=== PATIENT | male | born 1980 | race African-American/Black ===

== ENCOUNTER 2020-04-04 09:43 | Emergency (ER) | payer OTHER ==
[2020-04-04] MEDS ORDERED: EPINEPHRINE/PF 1 MG/ML AMP ONE (10:00)
--- NOTE | 2020-04-04 10:34 | ER ---
Nurse's Notes [facility] Name: Richard Mensah Age: 39 yrs Sex: Male : 1980 Arrival Date: 04/04/2020 Time: 09:47 Bed 3 Private MD: Diagnosis: Obesity, unspecified;Edema, unspecified-LEFT LEG;Acute embolism and thrombosis of unspecified deep veins of left lower extremity;Pulmonary embolism;Respiratory failure, unspecified with hypoxia;Cardiac arrest Presentation: 04/04 09:38 Chief complaint: EMS states: EMS toned out for SOB, on scene pt diaphoretic, hb hyperventilating, on Xarelto for DVT, has not had medication in 4 days, pt stated "I can't breathe" then collapsed to ground. 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 09:38 Coronavirus screen: At this time, the client does not indicate any symptoms associated hb with coronavirus-19. Ebola Screen: No symptoms or risks identified at this time. Initial Sepsis Screen: Does the patient meet any 2 criteria? No. Patient's initial sepsis screen is negative. Does the patient have a suspected source of infection? No. Patient's initial sepsis screen is negative. Risk Assessment: Do you want to hurt yourself or someone else? Unable to obtain. Onset of symptoms was April 04, 2020. 09:38 Method Of Arrival: EMS: [facility] 09:38 Acuity: OSCAR 1 hb 09:38 Care prior to arrival: Oral intubation, CPR manually via thumper performed by EMS and sv is still in progress Medication(s) given: Epinephrine x4, Bicarbonate x 1. Compressions began prior to arrival. Triage Assessment: 09:42 General: Appears obese, Behavior is unresponsive. Pain: Unable to use pain scale. hb Patient is unresponsive. Historical: - Allergies: 10:14 Unable to obtain; hb - Home Meds: 10:14 Xarelto oral oral [Active]; hb - PMHx: 10:14 DVT; hb - PSHx: 10:14 Unable to obtain; hb - Immunization history:: unable to obtain. - Social history:: Smoking status: unknown. Screenin:45 Fall Risk None identified. hb 10:14 Abuse screen: unable to obtain. Nutritional screening: No deficits noted. Tuberculosis hb screening: unable to obtain. Assessment: 09:38 CPR assessment: unresponsive, no respiratory effort, intubated, Ambu ventilation. sv Cardiac rhythm is PEA. General: Appears unresponsive. Behavior is unresponsive. Neuro: Level of Consciousness is unresponsive, Oriented to none. Cardiovascular: Edema is 2+ to left midcalf, left ankle and left foot. Respiratory: Respiratory effort is none Respiratory pattern is none. GI: Abdomen is obese. Derm: Skin is intact. 09:42 Reassessment: CPR paused, PEA, manual CPR resumed. sv 09:44 Reassessment: CPR paused, PEA, manual CPR resumed. sv 09:46 Reassessment: CPR paused, PEA, manual CPR resumed. sv 09:49 Reassessment: CPR paused, PEA, manual CPR resumed. sv 09:50 Reassessment: CPR paused, PEA, manual CPR resumed. sv 09:53 Reassessment: CPR paused, PEA, manual CPR resumed. sv 09:55 Reassessment: CPR paused, PEA, manual CPR resumed. sv 09:57 Reassessment: CPR paused, PEA, manual CPR resumed. sv 09:59 Reassessment: CPR paused, PEA, manual CPR resumed. sv 10:20 Reassessment: [employer] at bedside. sv 10:40 Reassessment: LJ garment looper at the bedside. sv 12:40 Reassessment: Pt to [facility]. sv Vital Signs: 09:38 Pulse Ox 42% on 100% BVM; hb 10:01 Temp 98.5(R); sv ED Course: 09:38 Maintain EMS IV. Dressing intact. Site clean \\T\\ dry. Gauge \\T\\ site: IO left leg, IO to sv right leg not good per EMS.. 09:47 Patient arrived in ED. ss 09:48 Assisted provider with central line placement. Set up central line tray. Triple lumen sv line placed in right femoral. Line placed by Isma Easley MD Placement verified by blood return, Dressed with Tegaderm, Before procedure, did Practitioner(s) obtain informed consent? No. Patient \\T\\ family education about procedure, CLABSI prevention and S/S of infection? No. Time-out/Briefing performed prior to start of procedure? No. Was handwashing/sanitizing done immediately prior to procedure? Yes. Was patient positioned to in a way to prevent air embolism? Yes. Was procedure site sterilized? Yes, with chlorhexidine. Was the site allowed to dry? Yes. Was local anesthetic and/or sedation utilized? Yes. During the procedure, did the Practitioner(s) maintain a sterile field? Yes. Were unused ports clamped during insertion? Yes. Was a 2nd qualified MD obtained after 3 unsuccessful insertion attempts? Yes. Was blood aspirated from each lumen? Yes. After the procedure, did the Practitioner(s) clean the site and apply a sterile dressing? Yes. 09:55 Patient has correct armband on for positive identification. hb 09:58 Arm band placed on. hb 10:02 Isma Easley MD is Attending Physician. hosea 10:04 called [place] [employer] to page out the Cloud Infrastructure Architect cotton broker. eb 10:13 Susan Coleman, DELMA is Primary Nurse. sv 10:18 Triage completed. hb 10:30 Isma Easley MD is Pronouncing Provider. hosea 10:42 intact. sv 11:18 called the [facility] in [place]/ They will send someone out to come picker packer eb the patient. 11:23 a wallet, a cell phone and one shoe was taken from the patient room by security and eb given to the Terri at her request. Administered Medications: 09:41 Drug: Sodium Bicarbonate 1 amp Route: IVP; Site: Other; sv 10:57 Follow up: Response: No adverse reaction sv 09:41 Drug: EPINEPHrine (PF) 1mg/mL 1:1,000 1 mg Route: IV; Rate: calculated rate; Site: sv Other; 09:41 Follow up: Response: No adverse reaction; IV Status: Completed infusion sv 09:41 Drug: Calcium Chloride 1 grams Route: IVP; Site: Other; sv 10:56 Follow up: Response: No adverse reaction sv 09:44 Drug: EPINEPHrine 0.1mg/mL 1:10,000 1 mg Route: IVP; Site: Other; sv 10:58 Follow up: Response: No adverse reaction sv 09:46 Drug: EPINEPHrine 0.1mg/mL 1:10,000 1 mg Route: IVP; Site: Other; sv 10:58 Follow up: Response: No adverse reaction sv 09:48 Drug: Sodium Bicarbonate 1 amp Route: IVP; Site: right femoral; sv 10:57 Follow up: Response: No adverse reaction sv 09:49 Drug: EPINEPHrine 0.1mg/mL 1:10,000 1 mg Route: IVP; Site: right femoral; sv 10:58 Follow up: Response: No adverse reaction sv 09:49 Drug: Calcium Chloride 1 grams Route: IVP; Site: right femoral; sv 10:56 Follow up: Response: No adverse reaction sv 09:49 Drug: NS 0.9% 1000 ml Route: IV; Rate: 1000 ml; Site: right femoral; sv 10:00 Follow up: IV Status: Order to discontinue infusion; IV Intake: 100ml sv 09:50 Drug: EPINEPHrine (PF) 1mg/mL 1:1,000 1 mg Route: IV; Rate: calculated rate; Site: sv right femoral; 09:50 Follow up: Response: No adverse reaction; IV Status: Completed infusion sv 09:52 Drug: EPINEPHrine 0.1mg/mL 1:10,000 1 mg Route: IVP; Site: right femoral; sv 10:58 Follow up: Response: No adverse reaction sv 09:56 Drug: EPINEPHrine 0.1mg/mL 1:10,000 1 mg Route: IVP; Site: right femoral; sv 10:58 Follow up: Response: No adverse reaction sv Intake: 10:00 IV: 100ml; Total: 100ml. sv Outcome: 10:00 Outcome Patient sv 10:00 Patient : Time of 10:00 Pronounced by Isma Easley MD Body to home. 10:00 Condition: 12:41 Patient left the ED. sv Signatures: Susan Coleman RN RN Isma Easley MD MD cha Smirch, Shelby, RN RN Debora De Luna RN RN Hilda Harrington Corrections: (The following items were deleted from the chart) 10:19 10:19 General: Appears obese, Behavior is unresponsive. hb hb 10:19 10:19 Pain: Unable to use pain scale. Patient is unresponsive. hb hb 10:57 10:56 Response: No adverse reaction; IV Status: Completed infusion sv sv 10:57 10:57 Response: No adverse reaction; IV Status: Completed infusion sv sv 16:19 10:00 Patient : Time of 10:00 Pronounced by Isma Easley MD sv
--- NOTE | 2020-04-04 10:34 | EDPHYS ---
Physician Documentation [facility] Name: Richard Mensah Age: 39 yrs Sex: Male : 1980 Arrival Date: 04/04/2020 Time: 09:47 Bed 3 Private MD: ED Physician Isma Easley HPI: 04/04 10:18 This 39 yrs old Black Male presents to ER via Unassigned with complaints of CPR. hosea 10:18 Preceding the arrest, the patient collapsed, was dyspneic. The arrest occurred at home. hosea Pre-hospital course: The arrest was witnessed Bystanders at the scene performed CPR. EMS care prior to arrival: initiation of ACLS, peripheral IV, intubation oxygen, backboard, 0 minutes elapsed prior to ACLS. ACLS details: Initial rhythm was then pea, then asystole. The patient has experienced a previous episode. Historical: - Allergies: 10:14 Unable to obtain; hb - Home Meds: 10:14 Xarelto oral oral [Active]; hb - PMHx: 10:14 DVT; hb - PSHx: 10:14 Unable to obtain; hb - Immunization history:: unable to obtain. - Social history:: Smoking status: unknown. ROS: 10:20 Unable to obtain ROS due to CPR, CALLED BECAUSE CANT BREATH, HX OF PE, OUT OF [facility] SEVERAL DAYS. Exam: 10:20 Eyes: Pupils: are fixed and dilated. hosea 10:20 Chest/axilla: Inspection: normal. 10:20 Cardiovascular: Rate: bradycardic, actual rate is 20 bpm, Rhythm: irregular, Pulses: not palpable, Heart sounds: NONE, Edema: 3+ edema to level of left midcalf and left ankle, JVD: is not appreciated. 10:20 Respiratory: ETT IN PLACE, CLEAR BS, NO JVD. Vital Signs: 09:38 Pulse Ox 42% on 100% BVM; hb 10:01 Temp 98.5(R); sv Procedures: 11:50 Central Line: the site was prepped with in sterile fashion, a triple lumen catheter was hosea inserted, in the right femoral vein, in 1 attempts. placement was verified, by blood return, the site was dressed with using sterile technique, the patient tolerated the procedure, well. MDM: 10:02 Patient medically screened. hosea 10:23 Antibiotic administration: Not indicated. Differential diagnosis: arrythmia, cardiac hosea arrest, respiratory arrest. The patient's Wells Deep Vein Thrombosis Score was calculated as follows: Suspected DVT (3 Pts) Previous DVT/PE (1.5 Pts) Total Score: 3-6 Pts - Mod Risk. The patient's pulmonary embolism risk score was calculated as follows: suspected deep vein thrombosis (3 Pts) the patient has a history of a previous deep vein thrombosis or pulmonary embolism (1.5 Pts) Total Score: 3-6 points. This patient was found to be at moderate risk for a pulmonary embolism by using the Well's assessment criteria. Immunization status:. Data reviewed: vital signs, nurses notes, EMS record. Data interpreted: night monitor: rate is 20 beats/min, rhythm is irregular, Pulse oximetry: is not applicable for this patient encounter. Test interpretation: by ED physician or midlevel provider: ECG, plain radiologic studies, PEA, REFRACTORY. Administered Medications: 09:41 Drug: Sodium Bicarbonate 1 amp Route: IVP; Site: Other; sv 10:57 Follow up: Response: No adverse reaction sv 09:41 Drug: EPINEPHrine (PF) 1mg/mL 1:1,000 1 mg Route: IV; Rate: calculated rate; Site: sv Other; 09:41 Follow up: Response: No adverse reaction; IV Status: Completed infusion sv 09:41 Drug: Calcium Chloride 1 grams Route: IVP; Site: Other; sv 10:56 Follow up: Response: No adverse reaction sv 09:44 Drug: EPINEPHrine 0.1mg/mL 1:10,000 1 mg Route: IVP; Site: Other; sv 10:58 Follow up: Response: No adverse reaction sv 09:46 Drug: EPINEPHrine 0.1mg/mL 1:10,000 1 mg Route: IVP; Site: Other; sv 10:58 Follow up: Response: No adverse reaction sv 09:48 Drug: Sodium Bicarbonate 1 amp Route: IVP; Site: right femoral; sv 10:57 Follow up: Response: No adverse reaction sv 09:49 Drug: EPINEPHrine 0.1mg/mL 1:10,000 1 mg Route: IVP; Site: right femoral; sv 10:58 Follow up: Response: No adverse reaction sv 09:49 Drug: Calcium Chloride 1 grams Route: IVP; Site: right femoral; sv 10:56 Follow up: Response: No adverse reaction sv 09:49 Drug: NS 0.9% 1000 ml Route: IV; Rate: 1000 ml; Site: right femoral; sv 10:00 Follow up: IV Status: Order to discontinue infusion; IV Intake: 100ml sv 09:50 Drug: EPINEPHrine (PF) 1mg/mL 1:1,000 1 mg Route: IV; Rate: calculated rate; Site: sv right femoral; 09:50 Follow up: Response: No adverse reaction; IV Status: Completed infusion sv 09:52 Drug: EPINEPHrine 0.1mg/mL 1:10,000 1 mg Route: IVP; Site: right femoral; sv 10:58 Follow up: Response: No adverse reaction sv 09:56 Drug: EPINEPHrine 0.1mg/mL 1:10,000 1 mg Route: IVP; Site: right femoral; sv 10:58 Follow up: Response: No adverse reaction sv Disposition: Patient pronounced on 04/04/20 10:00 by Isma Easley. Impression: Obesity, unspecified, Edema, unspecified - LEFT LEG, Acute embolism and thrombosis of unspecified deep veins of left lower extremity, Pulmonary embolism, Respiratory failure, unspecified with hypoxia, Cardiac arrest. - Released to Home. Signatures: Susan Coleman RN RN Isma Easley MD MD cha Baxter, Heather RN RN Corrections: (The following items were deleted from the chart) 12:41 10:33 04/04/2020 10:33 Patient pronounced on 04/04/2020 at 10:00 by Isma Easley. sv Impression: Obesity, unspecified; Edema, unspecified - LEFT LEG; Acute embolism and thrombosis of unspecified deep veins of left lower extremity; Pulmonary embolism; Respiratory failure, unspecified with hypoxia; Cardiac arrest. Released to Home. hosea
[2020-04-04 12:45] VITALS: TEMP 98.5
== END 2020-04-04 12:41 | disposition expired ==
LOC: ER 09:43
PROC: 06HM33Z Insertion of Infusion Device into Right Femoral Vein, Percutaneous Approach (ICD-10-PCS; principal; 2020-04-04)
DX: I46.9 Cardiac arrest, cause unspecified (principal); I82.402 Acute embolism and thrombosis of unspecified deep veins of left lower extremity; R60.9 Edema, unspecified; E66.9 Obesity, unspecified; Z79.01 Long term (current) use of anticoagulants; Z86.718 Personal history of other venous thrombosis and embolism
CPT/HCPCS: 92950; 99285; 36556; J0171